=== PATIENT | female | born 1990 ===

== ENCOUNTER 2021-03-03 20:10 | Emergency (ER) | payer SELFPAY ==
--- OUTSIDE RECORDS SUMMARY | 2021-03-03 20:12 | XMS REPORT | Continuity of Care Document ---
:1990 Author Organization [facility] t Address [address] [place] [address] Dr. Mcarthur [address] [place] [id number] Care Team Providers Name Role Phone Unavailable Unavailable Unavailable Problems This patient has no known problems. Allergies, Adverse Reactions, Alerts This patient has no known allergies or adverse reactions. Medications This patient has no known medications. Procedures This patient has no known procedures. Results This patient has no known results.
[2021-03-03 22:19] LABS: Urine Blood 1+ (Negative); Urine Glucose Negative (Negative); Urine Protein Negative (Negative); Urine Specific Gravity 1.015 (1.005-1.030)
[2021-03-03 22:20] LABS: Absolute Lymphocytes (CBC) 1.9 K/uL (0.7-4.9); Basophils % 0.6 % (0-1.3); Hematocrit 33.8 % (36.0-45.0); Lymphocytes % 31.4 % (15.3-44.8); MPV 8.7 fL (7.6-11.3)
[2021-03-03 22:44] LABS: ALT/SGPT 30 U/L (12-78); AST/SGOT 28 U/L (15-37); Albumin 3.4 g/dL (3.4-5.0); Alkaline Phosphatase 48 U/L (45-117); BUN Blood Urea Nitrogen 9 mg/dL (7-18); Bicarbonate 26 mmol/L (21-32); Bilirubin Direct < 0.1 mg/dL (0-0.2); Bilirubin Total 0.3 mg/dL (0.2-1.0); Glucose Level 98 mg/dL (74-106); Lipase 49 U/L (73-393); Potassium 3.5 mmol/L (3.5-5.1); Protein, Total 6.3 g/dL (6.4-8.2); Sodium Level 142 mmol/L (136-145)
[2021-03-03 22:45] LABS: Urine Specific Gravity/Preg 1.015 (1.005-1.030)
--- NOTE | 2021-03-03 23:13 | EDPHYS ---
Physician Documentation [facility] Name: Yeu Mathew Age: 30 yrs Sex: Female : 1990 Arrival Date: 03/03/2021 Time: 20:15 Bed 16 Private MD: ED Physician Cayden Rojo HPI: 03/03 23:10 This 30 yrs old Female presents to ER via Ambulatory with complaints of FACE, HAND ma2 SWELLING. 23:10 Onset: The symptoms/episode began/occurred gradually, 2 day(s) ago. Severity of ma2 symptoms: At their worst the symptoms were very mild in the emergency department the symptoms are unchanged. The patient has not experienced similar symptoms in the past. 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 - Social history:: Smoking status: Patient reports the use of cigarette tobacco products, smokes one-half pack cigarettes per day. - Family history:: not pertinent. ROS: 23:10 Constitutional: Negative for fever, chills, and weight loss. ma2 23:10 All other systems are negative. Exam: 23:10 Constitutional: This is a well developed, well nourished patient who is awake, alert, ma2 and in no acute distress. Head/Face: mild facial edema, around eyes. airway and tongue are not involved, Normocephalic, atraumatic. Chest/axilla: Normal chest wall appearance and motion. Nontender with no deformity. No lesions are appreciated. Cardiovascular: Regular rate and rhythm with a normal S1 and S2. No gallops, murmurs, or rubs. Normal PMI, no JVD. No pulse deficits. Respiratory: Lungs have equal breath sounds bilaterally, clear to auscultation and percussion. No rales, rhonchi or wheezes noted. No increased work of breathing, no retractions or nasal flaring. Abdomen/GI: Soft, non-tender, with normal bowel sounds. No distension or tympany. No guarding or rebound. No evidence of tenderness throughout. Back: No spinal tenderness. No costovertebral tenderness. Full range of motion. Skin: Warm, dry with normal turgor. Normal color with no rashes, no lesions, and no evidence of cellulitis. MS/ Extremity: mild le edema, equal bilaterally, Pulses equal, no cyanosis. Neurovascular intact. Full, normal range of motion. Neuro: Awake and alert, GCS 15, oriented to person, place, time, and situation. Cranial nerves II-XII grossly intact. Motor strength 5/5 in all extremities. Sensory grossly intact. Cerebellar exam normal. Normal gait. Vital Signs: 20:32 BP 134 / 81; Pulse 96; Resp 16 S; Temp 97.9(TE); Pulse Ox 98% on R/A; Weight 72.57 kg ca1 (R); Height 5 ft. 7 in. (170.18 cm) (R); Pain 0/10; 21:53 BP 135 / 94; Pulse 75; Resp 16; Pulse Ox 100% on R/A; jb4 22:45 BP 107 / 70; Pulse 71; Resp 16; Pulse Ox 100% on R/A; jb4 20:32 Body Mass Index 25.06 (72.57 kg, 170.18 cm) ca1 MDM: 21:06 Patient medically screened. ma2 23:10 Differential Diagnosis dm, akr, uti, vs electrolyte disturbance. Data reviewed: vital ma2 signs, nurses notes. Counseling: I had a detailed discussion with the patient and/or guardian regarding: the historical points, exam findings, and any diagnostic results supporting the discharge/admit diagnosis, the presence of at least one elevated blood pressure reading (>120/80) during this emergency department visit, the need for outpatient follow up. Response to treatment: There is no appreciated change of the patient's symptoms at this time. 03/03 21:31 Order name: Basic Metabolic Panel ak2 03/03 21:31 Order name: CBC with Diff ak2 03/03 21:31 Order name: Hepatic Function ak2 03/03 21:31 Order name: Lipase ak2 03/03 21:32 Order name: Basic Metabolic Panel; Complete Time: 22:57 EDMS 03/03 21:32 Order name: CBC with Automated Diff; Complete Time: 22:57 EDMS 03/03 21:31 Order name: IV Saline Lock; Complete Time: 21:54 ma2 03/03 21:31 Order name: Labs collected and sent; Complete Time: 21:54 ma2 03/03 21:31 Order name: Urine Dipstick-Ancillary (obtain specimen); Complete Time: 22:12 ma2 03/03 21:32 Order name: Liver (Hepatic) Function; Complete Time: 22:57 EDMS 03/03 21:32 Order name: Lipase; Complete Time: 22:57 EDMS 03/03 22:19 Order name: Urine --Ancillary (enter results); Complete Time: 22:57 tt3 03/03 22:19 Order name: Urine Dipstick-Ancillary; Complete Time: 22:57 EDMS Administered Medications: No medications were administered Disposition: 03/03/21 23:12 Discharged to Home. Impression: Edema, unspecified - generalized. - Condition is Stable. - Discharge Instructions: Edema, [id number], Peripheral Edema. - Prescriptions for Medrol (Kamran) 4 mg Oral Tablets, Dose Pack - take 1 tablet by ORAL route as directed - follow package instructions; 1 packet. - Medication Reconciliation Form, Thank You Letter, Antibiotic Education, Prescription Opioid Use form. - Follow up: Private Physician; When: Tomorrow; Reason: If symptoms return, Continuance of care. Signatures: Dispatcher [employer] EDJosh Malik RN RN jb4 Cayden Rojo MD MD ma2 Katy Salazar RN RN ca1 Corrections: (The following items were deleted from the chart) 23:24 23:12 03/03/2021 23:12 Discharged to Home. Impression: Edema, unspecified - jb4 generalized. Condition is Stable. Forms are Medication Reconciliation Form, Thank You Letter, Antibiotic Education, Prescription Opioid Use. Follow up: Private Physician; When: Tomorrow; Reason: If symptoms return, Continuance of care. ma2
--- NOTE | 2021-03-03 23:13 | ER ---
Nurse's Notes [facility] Name: Yue Mathew Age: 30 yrs Sex: Female : 1990 Arrival Date: 03/03/2021 Time: 20:15 Bed 16 Private MD: Diagnosis: Edema, unspecified-generalized Presentation: 03/03 20:32 Chief complaint: Patient states: Swelling of both feet and both hands for 2 weeks. This ca1 morning, my face started swelling too. Reports nausea and a little SOB at rest. Coronavirus screen: Client denies travel out of the [place] in the last 14 days. nausea, shortness of breath, Client presents with at least one sign or symptom that may indicate coronavirus-19. Standard/surgical mask placed on the client. Provider contacted for isolation considerations. Ebola Screen: Patient negative for fever greater than or equal to 101.5 degrees Fahrenheit, and additional compatible Ebola Virus Disease symptoms Patient denies exposure to infectious person. Patient denies travel to an Ebola-affected area in the 21 days before illness onset. No symptoms or risks identified at this time. Initial Sepsis Screen: Does the patient meet any 2 criteria? No. Patient's initial sepsis screen is negative. Does the patient have a suspected source of infection? No. Patient's initial sepsis screen is negative. Risk Assessment: Do you want to hurt yourself or someone else? Patient reports no desire to harm self or others. Onset of symptoms was March 03, 2021. 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 - Social history:: Smoking status: Patient reports the use of cigarette tobacco products, smokes one-half pack cigarettes per day. - Family history:: not pertinent. Screenin:50 Abuse screen: Denies threats or abuse. Nutritional screening: No deficits noted. jb4 Tuberculosis screening: No symptoms or risk factors identified. Fall Risk None identified. Assessment: 21:50 General: Appears in no apparent distress. comfortable, Behavior is calm, cooperative, jb4 PT reports swelling to the hands and feet that has been going on for 2 weeks. Pain: Denies pain. Neuro: Level of Consciousness is awake, alert, obeys commands, Oriented to person, place, time, situation. Cardiovascular: Patient's skin is warm and dry. Respiratory: Airway is patent Respiratory effort is even, unlabored, Respiratory pattern is regular, symmetrical. GI: No signs and/or symptoms were reported involving the gastrointestinal system. : No signs and/or symptoms were reported regarding the genitourinary system. EENT: No signs and/or symptoms were reported regarding the EENT system. Derm: Skin is intact, Skin is pink, warm \T\ dry. Musculoskeletal: Circulation, motion, and sensation intact. Range of motion: intact in all extremities. 22:54 Reassessment: Patient appears in no apparent distress at this time. Patient and/or jb4 family updated on plan of care and expected duration. Pain level reassessed. Patient is alert, oriented x 3, equal unlabored respirations, skin warm/dry/pink. Vital Signs: 20:32 BP 134 / 81; Pulse 96; Resp 16 S; Temp 97.9(TE); Pulse Ox 98% on R/A; Weight 72.57 kg ca1 (R); Height 5 ft. 7 in. (170.18 cm) (R); Pain 0/10; 21:53 BP 135 / 94; Pulse 75; Resp 16; Pulse Ox 100% on R/A; jb4 22:45 BP 107 / 70; Pulse 71; Resp 16; Pulse Ox 100% on R/A; jb4 20:32 Body Mass Index 25.06 (72.57 kg, 170.18 cm) ca1 ED Course: 20:15 Patient arrived in ED. ag3 20:34 Triage completed. ca1 20:34 Arm band placed on right wrist. ca1 21:06 Cayden Rojo MD is Attending Physician. ma2 21:36 Josh Garcia, JEFFY is Primary Nurse. jb4 21:45 Initial lab(s) drawn, by me, sent to lab. Inserted saline lock: 18 gauge in left jb4 antecubital area, using aseptic technique. Blood collected. 23:23 No provider procedures requiring assistance completed. IV discontinued, intact, jb4 bleeding controlled, No redness/swelling at site. Pressure dressing applied. Administered Medications: No medications were administered Outcome: 23:12 Discharge ordered by . fran 23:23 Discharged to home ambulatory. jb4 23:23 Condition: stable 23:23 Discharge instructions given to patient, Instructed on discharge instructions, follow up and referral plans. medication usage, Demonstrated understanding of instructions, follow-up care, medications, Prescriptions given X 1. 23:24 Patient left the ED. jb4 Signatures: Josh Garcia, RN RN jb4 Cayden Rojo MD MD ma2 Adele Chakraborty ag3 Katy Salazar RN RN ca1
[2021-03-03 23:29] VITALS: TEMP 97.9
[2021-03-03 23:31] VITALS: O2SAT 100
[2021-03-03 23:32] VITALS: BP 107/70
== END 2021-03-03 23:24 | disposition home or self-care (01) ==
LOC: ER 20:10
DX: R60.1 Generalized edema (principal); F17.210 Nicotine dependence, cigarettes, uncomplicated
CPT/HCPCS: 36415; 80048; 80076; 81003; 81025; 83690; 85025; 99283

== ENCOUNTER 2021-05-22 06:15 | Emergency (ER) | payer SELFPAY ==
--- OUTSIDE RECORDS SUMMARY | 2021-05-22 06:20 | XMS REPORT | Continuity of Care Document ---
:1990 Author Organization [facility] t Address [address] [place] [address] Care Team Providers Name Role Phone Dot Wright Attending Clinician Doctor Unassigned, Name Attending Clinician Unavailable Problems This patient has no known problems. Allergies, Adverse Reactions, Alerts This patient has no known allergies or adverse reactions. Medications This patient has no known medications. Procedures This patient has no known procedures. Encounters Start End Encounter Admission Attending Care Care Encounter Source Date/Time Date/Time Type Type Clinicians Facility Department ID 2020-01-10 2020-01-10 Case SILVIA Butler [id number] 00:00:00 00:00:00 Management Varun Chris APARTMENT RENTAL AGENT [id number] [facility] [id number] MATERNAL [id number] & CHILD 107 [facility] 2020-01-01 2020-01-01 Patient Doctor [facility] [id number] 00:00:00 00:00:00 Secure Msg Unassigned, APARTMENT RENTAL AGENT [id number] [place] [facility] [id number] MATERNAL [id number] & CHILD 107 [facility] 2019-12-29 2019-12-29 Office SILVIA Butler [id number] 12:54:18 14:04:14 Visit Roshunda R APARTMENT RENTAL AGENT [id number] [facility]AL [id number] MATERNAL [id number] & CHILD [address] [place] [address] - [place] Results This patient has no known results.
[2021-05-22] MEDS ORDERED: METHYLPREDNISOLONE 125 MG INJ ONE (07:07)
[2021-05-22] MEDS ORDERED: FAMOTIDINE 20 MG/2 ML VIAL IV ONE (07:08)
[2021-05-22] MEDS ORDERED: NA CHLORIDE 0.9% 1,000 ML ONE (07:08)
[2021-05-22] MEDS ORDERED: DIPHENHYDRAMINE 50 MG/ML VIAL ONE (07:08)
--- NOTE | 2021-05-22 08:03 | ER ---
Nurse's Notes [facility] Name: Yue Alegria Age: 31 yrs Sex: Female : 1990 Arrival Date: 05/22/2021 Time: 06:23 Bed 20 Private MD: Diagnosis: Allergic urticaria;Urticaria, unspecified;Angioneurotic edema Presentation: 05/22 06:38 Chief complaint: Patient states: woke up with feeling of swelling in throat and facial em swelling at 0445, took 25 mg Benadryl WARP SPINNER, also reports trouble breathing, denies fever. Coronavirus screen: Client denies travel out of the [place] in the last 14 days. Ebola Screen: Patient negative for fever greater than or equal to 101.5 degrees Fahrenheit, and additional compatible Ebola Virus Disease symptoms Patient denies exposure to infectious person. Patient denies travel to an Ebola-affected area in the 21 days before illness onset. No symptoms or risks identified at this time. Initial Sepsis Screen: Does the patient meet any 2 criteria? HR > 90 bpm. Does the patient have a suspected source of infection? No. Patient's initial sepsis screen is negative. Risk Assessment: Do you want to hurt yourself or someone else? Patient reports no desire to harm self or others. Onset of symptoms was May 22, 2021. 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 - Social history:: Smoking status: Patient reports the use of cigarette tobacco products, smokes one-half pack cigarettes per day. - Family history:: not pertinent. Screenin:40 Abuse screen: Denies threats or abuse. Nutritional screening: No deficits noted. em Tuberculosis screening: No symptoms or risk factors identified. Fall Risk None identified. Assessment: 06:40 General: Appears in no apparent distress. comfortable, Behavior is calm, cooperative, em appropriate for age, Denies fever. Pain: Denies pain. Neuro: Level of Consciousness is awake, alert, obeys commands, Oriented to person, place, time, situation, Appropriate for age. Cardiovascular: Capillary refill < 3 seconds Patient's skin is warm and dry. Respiratory: Airway is patent Respiratory effort is even, unlabored, Respiratory pattern is regular, symmetrical. GI: Patient currently denies nausea, vomiting. EENT: Oral mucosa is moist. Throat reports throat swelling. Derm: Skin is intact, is healthy with good turgor, Skin is pink, warm \T\ dry. Musculoskeletal: Capillary refill < 3 seconds, Range of motion: intact in all extremities, Swelling present in face. 07:03 General: Appears in no apparent distress. comfortable, Behavior is calm, cooperative, rb3 Denies fever. Pain: Denies pain. Neuro: Level of Consciousness is awake, alert, obeys commands, Oriented to person, place, time, situation. Cardiovascular: Capillary refill < 3 seconds Patient's skin is warm and dry. Respiratory: Airway is patent Respiratory effort is even, unlabored, Respiratory pattern is regular, symmetrical. GI: No signs and/or symptoms were reported involving the gastrointestinal system. GI: Patient currently denies nausea, vomiting. : No signs and/or symptoms were reported regarding the genitourinary system. 08:00 Reassessment: Patient appears in no apparent distress at this time. Patient states rb3 symptoms have improved. Vital Signs: 06:38 BP 135 / 83; Pulse 97; Resp 20; Temp 97.2; Pulse Ox 100% on R/A; Weight 72.57 kg; em Height 5 ft. 7 in. (170.18 cm); Pain 0/10; 07:30 BP 137 / 92; Pulse 84; Resp 16; Pulse Ox 100% ; rb3 08:09 BP 133 / 87; Pulse 82; Resp 16; Pulse Ox 100% ; rb3 06:38 Body Mass Index 25.06 (72.57 kg, 170.18 cm) em ED Course: 06:23 Patient arrived in ED. es 06:35 Cayden Rojo MD is Attending Physician. ma2 06:40 Patient has correct armband on for positive identification. Adult w/ patient. Pulse ox em on. NIBP on. Warm blanket given. 06:41 Triage completed. em 06:41 Arm band placed on. em 06:47 Aguila Alejandre is Primary Nurse. ad5 06:50 Inserted saline lock: 22 gauge in right antecubital area, using aseptic technique. em 07:17 Attending Physician role handed off by Cayden Rojo MD [facility] 07:17 Leonel Aragon MD is Attending Physician. [place] 08:02 Angélica Abernathy MD is Referral Physician. [place] 08:18 IV discontinued, intact, bleeding controlled, No redness/swelling at site. Pressure tr6 dressing applied. 08:19 No provider procedures requiring assistance completed. tr6 Administered Medications: 06:50 Drug: NS 0.9% 1000 ml Route: IV; Rate: 1 bolus; Site: right antecubital; em 08:00 Follow up: Response: Other; Infusion complete rb3 06:50 Drug: Benadryl (diphenhydrAMINE) 50 mg Route: IVP; Site: right antecubital; em 07:31 Follow up: Response: No adverse reaction rb3 06:50 Drug: Pepcid (famotidine) 20 mg Route: IVP; Site: right antecubital; em 07:31 Follow up: Response: No adverse reaction rb3 06:52 Drug: SOLU-Medrol (methylPrednisoLONE) 125 mg Route: IVP; Site: right antecubital; em 07:30 Follow up: Response: No adverse reaction; symptoms have improved rb3 08:17 Not Given (Patient Refused; pt prefers to take med at night as it puts her to sleep. tr6 narinder aware. OK for dischargee): predniSONE 60 mg PO once Intake: Outcome: 08:03 Discharge ordered by . [facility] 08:18 Discharged to home ambulatory. tr6 08:18 Condition: good 08:18 Discharge instructions given to patient, Instructed on discharge instructions, follow up and referral plans. no drinking with medication, medication usage, safety practices, Demonstrated understanding of instructions, follow-up care, medications, Prescriptions given X 4. 08:19 Patient left the ED. tr6 Signatures: Leonel Aragon MD MD cha Salyer, Edna es Munoz, Edgar, RN RN Cayden Rojo MD MD nh2 Johana Fatima RN RN rb3 Cornelia Abebe RN RN tr6 Aguila Alejandre
--- NOTE | 2021-05-22 08:03 | EDPHYS ---
Physician Documentation [facility] Name: Yue Alegria Age: 31 yrs Sex: Female : 1990 Arrival Date: 05/22/2021 Time: 06:23 Bed 20 Private MD: ED Physician Leonel Aragon HPI: 05/22 07:07 This 31 yrs old Female presents to ER via Ambulatory with complaints of Throat ma2 swelling, face swelling. 07:07 This 31 yrs old Female presents to ER via Ambulatory with complaints of Throat ma2 swelling, face swelling. 07:07 Onset: The symptoms/episode began/occurred gradually, 3 day(s) ago. Associated signs ma2 and symptoms: Pertinent negatives: dysphagia, nausea, redness in area, swelling. Severity of symptoms: At their worst the symptoms were mild, moderate, in the emergency department the symptoms are unchanged. The patient has experienced similar episodes in the past. [employer]: 06:41 LMP 05/16/2021 em Historical: - Allergies: 06:41 No Known Allergies; em - PMHx: 06:41 None; em - PSHx: 06:41 section; left shoulder x 2; em - Immunization history:: Adult Immunizations up to date. - Social history:: Smoking status: Patient reports the use of cigarette tobacco products, smokes one-half pack cigarettes per day. - Family history:: not pertinent. ROS: 07:07 Constitutional: Negative for fever, chills, and weight loss. ma2 07:07 All other systems are negative. Exam: 07:07 Constitutional: This is a well developed, well nourished patient who is awake, alert, ma2 and in no acute distress. Head/Face: Normocephalic, atraumatic. Eyes: Pupils equal round and reactive to light, extra-ocular motions intact. Lids and lashes normal. Conjunctiva and sclera are non-icteric and not injected. Cornea within normal limits. Periorbital areas with no swelling, redness, or edema. ENT: Nares patent. No nasal discharge, no septal abnormalities noted. Tympanic membranes are normal and external auditory canals are clear. Oropharynx with no redness, swelling, or masses, exudates, or evidence of obstruction, uvula midline. Mucous membranes moist. Neck: Trachea midline, no thyromegaly or masses palpated, and no cervical lymphadenopathy. Supple, full range of motion without nuchal rigidity, or vertebral point tenderness. No Meningismus. Chest/axilla: Normal chest wall appearance and motion. Nontender with no deformity. No lesions are appreciated. Cardiovascular: Regular rate and rhythm with a normal S1 and S2. No gallops, murmurs, or rubs. Normal PMI, no JVD. No pulse deficits. Respiratory: Lungs have equal breath sounds bilaterally, clear to auscultation and percussion. No rales, rhonchi or wheezes noted. No increased work of breathing, no retractions or nasal flaring. Abdomen/GI: Soft, non-tender, with normal bowel sounds. No distension or tympany. No guarding or rebound. No evidence of tenderness throughout. Back: No spinal tenderness. No costovertebral tenderness. Full range of motion. Skin: Warm, dry with normal turgor. Normal color with no rashes, no lesions, and no evidence of cellulitis. MS/ Extremity: Pulses equal, no cyanosis. Neurovascular intact. Full, normal range of motion. Neuro: Awake and alert, GCS 15, oriented to person, place, time, and situation. Cranial nerves II-XII grossly intact. Motor strength 5/5 in all extremities. Sensory grossly intact. Cerebellar exam normal. Normal gait. Vital Signs: 06:38 BP 135 / 83; Pulse 97; Resp 20; Temp 97.2; Pulse Ox 100% on R/A; Weight 72.57 kg; em Height 5 ft. 7 in. (170.18 cm); Pain 0/10; 07:30 BP 137 / 92; Pulse 84; Resp 16; Pulse Ox 100% ; rb3 08:09 BP 133 / 87; Pulse 82; Resp 16; Pulse Ox 100% ; rb3 06:38 Body Mass Index 25.06 (72.57 kg, 170.18 cm) em MDM: 07:05 Patient medically screened. ma2 07:07 Differential diagnosis: gingivitis, gingivostomatitis, possible allergic reaction, ma2 airway is patent and wnl.. she feels mild sob that has improved.. 07:17 Patient medically screened. [facility] 08:01 Data reviewed: vital signs, nurses notes. Data interpreted: monitor tech: rate is 97 [place] beats/min, rhythm is regular, Pulse oximetry: on room air is 100 %. Test interpretation: by ED physician or midlevel provider:. Counseling: I had a detailed discussion with the patient and/or guardian regarding: the historical points, exam findings, and any diagnostic results supporting the discharge/admit diagnosis, the need for outpatient follow up, for definitive care, a family practitioner. Administered Medications: 06:50 Drug: NS 0.9% 1000 ml Route: IV; Rate: 1 bolus; Site: right antecubital; em 08:00 Follow up: Response: Other; Infusion complete rb3 06:50 Drug: Benadryl (diphenhydrAMINE) 50 mg Route: IVP; Site: right antecubital; em 07:31 Follow up: Response: No adverse reaction rb3 06:50 Drug: Pepcid (famotidine) 20 mg Route: IVP; Site: right antecubital; em 07:31 Follow up: Response: No adverse reaction rb3 06:52 Drug: SOLU-Medrol (methylPrednisoLONE) 125 mg Route: IVP; Site: right antecubital; em 07:30 Follow up: Response: No adverse reaction; symptoms have improved rb3 08:17 Not Given (Patient Refused; pt prefers to take med at night as it puts her to sleep. tr6 narinder aware. OK for dischargee): predniSONE 60 mg PO once Disposition Summary: 05/22/21 08:03 Discharge Ordered Location: Home [place] Problem: new [place] Symptoms: have improved [place] Condition: Stable [place] Diagnosis - Allergic urticaria [place] - Urticaria, unspecified [place] - Angioneurotic edema [place] Followup: [place] - With: Private Physician - When: 2 - 3 days - Reason: Recheck today's complaints, Continuance of care, Re-evaluation by your physician Followup: [place] - With: Angélica Abernathy MD - When: 2 - 3 days - Reason: Recheck today's complaints, Re-evaluation by your physician Discharge Instructions: - Allergies, Adult [place] - Angioedema [place] - Discharge Summary Sheet ma2 - Rash, Adult, [id number] [place] - Hives, [id number] [place] Forms: - Medication Reconciliation Form [place] - Thank You Letter [place] - Antibiotic Education [place] - Prescription Opioid Use [place] Prescriptions: - EpiPen 0.3 mg/0.3 mL Injection auto-injector - inject 0.3 milliliter by INTRAMUSCULAR route as directed as needed for [place] anaphylaxis; 2 Cartridge; Refills: 0, Product Selection Permitted - Pepcid 20 mg Oral Tablet - take 1 tablet by ORAL route every 12 hours for 10 days; 20 tablet; Refills: 0, ma2 Product Selection Permitted - Benadryl 25 mg Oral Capsule - take 2 capsule by ORAL route every 6 hours As needed; 36 tablet; Refills: 0, [facility] Product Selection Permitted - Prednisone 20 mg Oral Tablet - take 2 tablets by ORAL route once daily for 5 days; 10 tablet; Refills: 0, [facility] Product Selection Permitted Signatures: Leonel Aragon MD MD cha Munoz, Edgar, RN RN em Cayden Rojo MD MD ma2 Johana Fatima RN rb3 Cornelia Abebe RN tr6
[2021-05-22] MEDS ORDERED: predniSONE 20 MG TAB ONE (08:26)
[2021-05-22 08:27] VITALS: BP 135/83; TEMP 97.2; O2SAT 100
== END 2021-05-22 08:19 | disposition home or self-care (01) ==
LOC: ER 06:15
DX: L50.0 Allergic urticaria (principal); F17.210 Nicotine dependence, cigarettes, uncomplicated
CPT/HCPCS: 96374; 96375; 99284; J1200; J2930; J7030; J7512